=== PATIENT | male | born 1950 | race Caucasian/White ===

== ENCOUNTER 2019-11-25 06:19 | Observation (INO) ==
[2019-11-25] MEDS ORDERED: 0.9 % Sodium Chloride 1,000 ML IVC SCH (07:15)
[2019-11-25] MEDS ORDERED: Ondansetron 4 MG/2 ML VIAL IVP PRN (07:43)
[2019-11-25] MEDS ORDERED: D5% in Water 1,000 ML IVC PRN (07:46)
[2019-11-25] MEDS ORDERED: *HR* Dextrose 50 % in Water (Syg) 50 ML SYRINGE IVP PRN (07:46)
[2019-11-25] MEDS ORDERED: Dextrose Gel 15 GM/37.5 ML TUBE PO PRN ×2 (07:46)
[2019-11-25] MEDS: Insulin LISPRO 300 UNITS/3 ML VIAL SQ SCH ×3 (10:07→17:58)
[2019-11-25] MEDS: polyethylene glycoL 3350 17 GM POWD.PACK PO SCH (10:12)
[2019-11-25] MEDS: amLODIPine 5 MG TABLET PO SCH (10:12)
[2019-11-25] MEDS: Furosemide 40 MG TABLET PO SCH ×2 (10:12→17:59)
[2019-11-25] MEDS: *HR* OxyCODONE/APAP 10/325 TABLET PO PRN ×2 (10:27→20:03)
[2019-11-26] MEDS ORDERED: Lidocaine -MPF 2% 2 ML VIAL ONE (07:25)
[2019-11-26] MEDS ORDERED: *HR* Propofol 200 MG/20 ML VIAL IVP ONE (07:56)
[2019-11-26] MEDS: Insulin LISPRO 300 UNITS/3 ML VIAL SQ SCH (08:35)
[2019-11-26] MEDS: Furosemide 40 MG TABLET PO SCH (09:15)
[2019-11-26] MEDS: amLODIPine 5 MG TABLET PO SCH (09:15)
[2019-11-26] MEDS: polyethylene glycoL 3350 17 GM POWD.PACK PO SCH (09:16)
[2019-11-26] MEDS: *HR* OxyCODONE/APAP 10/325 TABLET PO PRN (10:45)
[2019-11-26 15:15] VITALS: BP 129/84
== END 2019-11-26 13:27 | disposition home or self-care (01) ==
LOC: SAMDAY 06:19 → 3BNU 06:19 → SAMDAY 08:00 → 3BNU 08:32
PROVIDERS: ADMIT Surgery; ATTEND Surgery